=== PATIENT | female | born 1980 | race Caucasian/White ===

== ENCOUNTER 2024-11-10 15:28 | Emergency (ER) | payer BC, MEDICAID | END 2024-11-10 16:48 | disposition home or self-care (01) | LOC: JP.ED 15:28 | DX: S93.401A Sprain of unspecified ligament of right ankle, initial encounter (principal); F17.210 Nicotine dependence, cigarettes, uncomplicated; W20.8XXA Other cause of strike by thrown, projected or falling object, initial encounter; Y93.E5 Activity, floor mopping and cleaning | CPT/HCPCS: 73610-26-RT; 73610-RT; 99283 ==